=== PATIENT | male | born 1990 | race Caucasian/White ===

== ENCOUNTER → 2022-05-15 08:46 | Outpatient (CLI) | payer OTHER, SELFPAY ==
--- NOTE | ~2022-05-15 | XR_ITS ---
XR chest 2V DATE: 05/15/2022 09:04 INDICATION: Type 1 diabetes mellitus TECHNIQUE: PA and lateral views COMPARISON: None FINDINGS: Normal heart size. No hilar or mediastinal enlargement. No pulmonary infiltrate or consolid ation, pleural effusion or pulmonary vascular congestion or pneumothorax. Included skeletal structure s appear normal. IMPRESSION: Negative Reviewed, dictated and finalized at location B. E[facility] SPECIALIST IMPRESSION: Negative
== END ==
PROVIDERS: PCP Ophthalmology; Visit Provider Ophthalmology
DX: E10.3513 Type 1 diabetes mellitus with proliferative diabetic retinopathy with macular edema, bilateral (principal); H44.119 Panuveitis, unspecified eye
CPT/HCPCS: 71046